=== PATIENT | female | born 1980 | race Caucasian/White ===

== ENCOUNTER 2019-12-14 13:59 | Inpatient (IN) | payer OTHER ==
[2019-12-14 14:22] VITALS: BMI 30.4
[2019-12-14] MEDS ORDERED: hydrALAZINE 20 MG/ML VIAL SLOW IVP PRN ×2 (14:33→19:05)
[2019-12-14] MEDS ORDERED: Ondansetron PF 4 MG/2 ML Vial IVP PRN ×2 (14:33→19:05)
[2019-12-14] MEDS ORDERED: Promethazine HCl 25 MG/ML VIAL IM PRN (14:33)
[2019-12-14] MEDS ORDERED: Clindamycin/D5W 900 MG in Premix Bag 1 BAG IVPB SCH (14:45)
[2019-12-14] MEDS ORDERED: Azithromycin 500 MG in Sodium Chloride 0.9% 250 ML 250 ML IVPB SCH (14:45)
[2019-12-14] MEDS ORDERED: Bicitra 30 ML UDCUP PO SCH (14:45)
[2019-12-14] MEDS ORDERED: Lactated Ringer's 1,000 ML IV SCH ×2 (14:45)
[2019-12-14] MEDS ORDERED: Azithromycin 500 MG VIAL ONE (14:46)
[2019-12-14] MEDS ORDERED: Oxytocin 10 UNITS/ML VIAL ONE ×3 (14:55→16:18)
[2019-12-14] MEDS ORDERED: PHENYLEPHRINE-NS 100 MCG/ML 10 ML SYRINGE ONE (14:55)
[2019-12-14] MEDS ORDERED: ePHEDrine 50 MG/ML VIAL ONE (14:55)
[2019-12-14 14:56] LABS: Hemoglobin 13.1 g/dL (12.0-16.0); Mean Corpuscular HGB CONC 34.3 g/dL (32.0-36.0); Mean Corpuscular Hemoglobin 31.4 pg (27.0-31.0); Mean Corpuscular Volume 91.4 fL (78.0-98.0); Mean Platelet Volume 9.2 fL (7.4-10.4); Platelet Count 185 thou/uL (130-400); RBC Distribution Width 12.8 % (11.5-14.5); Red Blood Cell (RBC) Count 4.18 mill/uL (4.20-5.40); White Blood Cell (WBC) Count 9.8 thou/uL (4.8-10.8)
[2019-12-14] MEDS: Clindamycin/D5W 900 mg/50 ml Premix Bag ONE (15:05)
[2019-12-14 15:36] LABS: HBSAg Index 0.18 S/CO (0-0.99); Hep B Surf Ag Non-Reactive S/CO (NonReactive); Syphilis Antibody Nonreactive (Nonreactive); Syphilis Antibody Index 0.06 S/CO (<1.00 Non-Reactive)
--- NOTE | 2019-12-14 15:41 | PDOC.LDHP ---
Labor and Delivery H&P Chief complaint: contractions, loss of fluid HPI: 39yo at 38w0d by LMP c/o LOF green since 1200 today, painful contractions. Current gestational age (weeks): 38 Due date: 12/28/19 Dating criteria: last menstrual period Grav: 3 Para: 2 Current complications: none Abnormal US findings: No Past Medical History: denies Current medications: pre- vitamins Previous surgical history: low tranverse CS, other (breast aug, tummy tuck) Allergies/Adverse Reactions: Allergies Allergy/AdvReac Type Severity Reaction Status Date / Time Penicillins Allergy Mild Verified 12/14/19 14:23 sulfamethoxazole Allergy Mild Verified 12/14/19 14:23 [From Bactrim] Social history: none - Physical Exam Vital signs reviewed and normal: yes General: NAD, breathing through contractions Heart: RRR Lungs: CTAB Abdomen: gravid Extremeties: no edema FHT: category 2, late decelerations, absent or minimal variables - OB Labs Blood type: A RH: positive Antibody Screen: negative HIV: negative RPR: negative HEPSAg: negative 1 hour GCT: positive 3 hour GTT: neg for GDM Rubella: immune - Assessment L&D Assessment: term rupture in membranes - Plan Plan: admit to L&D, to OR for section, informed consent obtained, anesthesia consult for pain management
--- NOTE | 2019-12-14 15:43 | PDOC.OPDEL ---
OB Operative/Delivery Note Delivery Dr/Surgeon: Mitesh Assist: Olinda Pre-Delivery Diagnosis: ruptured membrane Procedure/Post Delivery Dx: repeat low transverse CS (and bilateral salpingectomy) Weeks gestation: 38 Anesthesia: spinal - Additional Findings/Plan Placenta delivered: spontaneous findings: low transverse hysterotomy without extension, normal uterus, normal tubes, normal ovaries Post delivery plan: routine recovery
[2019-12-14] MEDS ORDERED: Ondansetron PF 4 MG/2 ML Vial ONE (15:58)
[2019-12-14 16:12] LABS: Actual Bicarbonate (HCO3a) 21.5 mEq/L (22-28); Base Excess (BEa) -8.5 mEq/L (-2.0 to +3.0)
[2019-12-14 16:14] LABS: Actual Bicarbonate (HCO3v) 20 mEq/L (22-28); Base Excess -8.4 mEq/L (-2.0 to +3.0)
[2019-12-14 16:15] LABS: pH (Cord, venous) 7.21 (7.32-7.43)
[2019-12-14] MEDS ORDERED: L&D-Morphine 4 MG/ML VIAL SLOW IVP PRN (16:45)
[2019-12-14] MEDS ORDERED: Ondansetron HCl/PF 4 MG/2 ML Vial IVP PRN (16:45)
[2019-12-14] MEDS ORDERED: HYDROmorphone 2 MG/ML VIAL SLOW IVP PRN (16:45)
[2019-12-14] MEDS ORDERED: Ketorolac Tromethamine 30 MG/ML VIAL IVP SCH (16:45)
[2019-12-14] MEDS ORDERED: Meperidine HCl/PF 25 MG/ML VIAL SLOW IVP PRN (16:45)
[2019-12-14] MEDS ORDERED: Bisacodyl 10 MG SUPP PR PRN (19:05)
[2019-12-14] MEDS ORDERED: Acetaminophen 325 MG TAB PO PRN (19:05)
[2019-12-14] MEDS ORDERED: diphenhydrAMINE 25 MG CAP PO PRN (19:05)
[2019-12-14] MEDS ORDERED: Lanolin Ointment 7 GM TUBE TOP PRN (19:05)
[2019-12-14] MEDS ORDERED: Ibuprofen 800 MG TAB PO SCH (22:00)
[2019-12-14 22:48] LABS: SARS-CoV-2 NAA Rapid Test Not Detected (NotDetected)
--- NOTE | 2019-12-14 22:52 | OP ---
DATE OF PROCEDURE: 12/14/2019 PREOPERATIVE DIAGNOSES: 1. Intrauterine at 38 weeks and 0 days. 2. Rupture of membranes. 3. Non-reassuring heart tones. 4. Desires sterilization. 5. Family history of breast cancer. 6. Prior x2. POSTOPERATIVE DIAGNOSES: 1. Intrauterine at 38 weeks and 0 days. 2. Rupture of membranes. 3. Non-reassuring heart tones. 4. Desires sterilization. 5. Family history of breast cancer. 6. Prior x2. PROCEDURE PERFORMED: Repeat low transverse section via Pfannenstiel skin incision and bilateral salpingectomy. ANESTHESIA: Spinal. BUSINESS APPLICATIONS DEVELOPER SURGEON: Clint Landaverde. ESTIMATED BLOOD LOSS: 500 mL. COMPLICATIONS: None. DRAINS: Martel catheter. PATHOLOGY: Bilateral fallopian tubes. FINDINGS: Male infant, cephalic presentation, thick meconium stained. Apgars and weight are pending. Hysterotomy without extension. Normal uterus and ovaries bilaterally. The right fallopian tube was slightly adherent to the right pelvic sidewall, otherwise normal-appearing fallopian tubes. DESCRIPTION OF PROCEDURE: The patient was taken to the operating room, where spinal anesthesia was obtained without difficulty. The patient was prepped and draped in a sterile fashion in the dorsal supine position with a leftward tilt. After ensuring adequacy of anesthesia, a Pfannenstiel skin incision was made and carried down to the underlying subcutaneous tissue with a knife. The fascia was nicked in the midline with a knife and carried laterally with Perdue scissors. The superior aspect of the fascia was tented with 2 Pardeep's and dissected off the rectus bluntly and sharply with the Perdue's. The inferior aspect of the fascia was tented with 2 Pardeep's and dissected off the rectus down to the pubic symphysis with the Perdue scissors. The rectus was bluntly divided in the midline. The peritoneum was bluntly entered into and manually retracted. The Segundo O retractor was placed. The filmy adhesion of the bladder to the lower uterine segment was taken down with the Metzenbaums. The lower uterine segment was incised in a transverse fashion and extended with a Cuenca maneuver. The 's head was brought to the hysterotomy and delivered atraumatically followed by the body. The 's cord was clamped and infant handed to awaiting Hunter team. Cord gases and cord blood were obtained. The placenta was allowed to spontaneously deliver. The uterus was exteriorized, cleared of all clots and debris. The hysterotomy was repaired with #1 Monocryl in a running locking fashion with excellent hemostasis noted. Moist warm lap was placed over the hysterotomy and the right fallopian tube was grasped and elevated with a Neversink clamp. Windows were made in the mesosalpinx. This tube was a tube that was slightly adherent down onto the pelvic sidewall and this was carefully layered out. The peritoneum was carefully layered out and incised with the Bovie while using Malawian to elevate the fallopian tube. The vessel to the fimbriated end was then skeletonized and clamped with a Echo. The remainder of the spiral arteries were skeletonized in the mesosalpinx. These were then clamped as well as the proximal portion of the fallopian tube was clamped. Metzenbaums were used to incise the tube and removed it entirely. These clamps were then tied off with 2-0 chromic ties, noting an excellent hemostasis. The same procedure was performed on the left fallopian tube. The uterus was then placed back into the abdomen. Irrigation was performed of the pelvis and pericolic gutters. The hysterotomy was noted to be hemostatic. Each fallopian tube site was examined directly and noted to be hemostatic as well. The Sgeundo O retractor was removed out of the abdomen. The rectus muscles were examined and noted to be hemostatic. The fascia was reapproximated with 0 PDS x1 suture with excellent reapproximation. The subcutaneous tissue was irrigated and cauterized of any bleeders and reapproximated with a 2-0 plain gut in a running fashion. The skin was closed with 4-0 Monocryl in a subcuticular fashion and Dermabond was applied as well as a pressure dressing. The patient tolerated the procedure well. Sponge and needle counts correct x2. The patient was taken to recovery room in stable condition. The patient received clindamycin and gentamicin prior to the procedure as well as azithromycin after the cord was clamped. Job ID: [id number]
[2019-12-15] MEDS ORDERED: Acetaminophen 325 MG TAB PO PRN (00:52)
[2019-12-15] MEDS ORDERED: diphenhydrAMINE 50 MG/ML VIAL IVP PRN (00:53)
[2019-12-15] MEDS ORDERED: Ketorolac Tromethamine 30 MG/ML VIAL IVP SCH (01:00)
[2019-12-15] MEDS: Clindamycin/D5W 900 mg/50 ml Premix Bag ONE (02:06)
[2019-12-15] MEDS: Docusate Calcium (SURFAK) 240 MG CAP PO SCH ×3 (03:08→22:51)
[2019-12-15 06:41] LABS: Mean Corpuscular HGB CONC 33.8 g/dL (32.0-36.0); Mean Corpuscular Hemoglobin 31.2 pg (27.0-31.0); Mean Corpuscular Volume 92.3 fL (78.0-98.0); Mean Platelet Volume 9.1 fL (7.4-10.4); Platelet Count 158 thou/uL (130-400); RBC Distribution Width 12.8 % (11.5-14.5); Red Blood Cell (RBC) Count 3.85 mill/uL (4.20-5.40); White Blood Cell (WBC) Count 10.2 thou/uL (4.8-10.8)
[2019-12-15] MEDS ORDERED: Ketorolac Tromethamine 30 MG/ML VIAL IVP PRN (07:00)
[2019-12-15] MEDS: Ferrous Sulfate 325 MG TAB PO SCH ×2 (07:33→17:20)
--- NOTE | 2019-12-15 08:27 | PDOC.PP ---
Post Progress Note Post Day #: 1 Subjective: no sx PIH, carpal tunnel is worse than ever PO intake tolerated: yes Flatus: yes Ambulation: yes Vital Signs (12 hours) Temp Pulse Resp BP Pulse Ox 12/15/19 08:03 98.1 F 61 20 151/89 H 100 12/15/19 06:00 71 20 158/93 H 12/15/19 05:20 98.2 F 71 20 157/98 H 99 12/15/19 02:00 20 12/14/19 23:15 97.9 F 71 20 149/97 H 99 12/14/19 21:55 97.9 F 65 20 159/93 H 12/14/19 20:55 97.9 F 70 20 140/92 H Weight Weight 172 lb - Physical Examination General: NAD Respiratory: non-labored breathing Abdominal: no distention, appropriately TTP Fundus firm & at: umb Skin: CS incision dry & intact Neurological: no gross focal deficits Psychiatric: normal affect Result Diagrams: 12/15/19 06:25 Additional Labs: Post Labs Hep Bs Antigen Non-Reactive S/CO (NonReactive) 12/14/19 14:46 Blood Type A POSITIVE 12/14/19 15:05 - Assessment/Plan POD1 s/p RCS and RRS BP elevated, need labs for PIH, start labetalol 200 bid Afebrile, other vitals stable Routine postop advances Baby in NICU possible downs syndrome Rh pos RImm Cont postop care.
[2019-12-15] MEDS ORDERED: Adacel (T-DAP) 0.5 ML SYRINGE IM ONE (09:00)
[2019-12-15 11:47] LABS: ALT (SGPT) 14 U/L (8-55); AST (SGOT) 25 U/L (5-34); Albumin 2.9 g/dL (3.5-5.0); Alkaline Phosphatase 147 U/L (40-110); Anion Gap 8 mmol/L (10-20); BUN (Urea Nitrogen) 11 mg/dL (7.0-18.7); Bilirubin, Total 0.3 mg/dL (0.2-1.2); Calc. Creatinine Clearance 125 mL/min (70-130); Calcium 8.5 mg/dL (7.8-10.44); Carbon Dioxide 24 mmol/L (22-29); Chloride 103 mmol/L (98-107); Estimated GFR-MDRD 86; Globulin 2.6 g/dL (2.4-3.5); Glucose 102 mg/dL (70-105); Potassium 4.1 mmol/L (3.5-5.1); Protein, Total 5.5 g/dL (6.0-8.3); Sodium 131 mmol/L (136-145)
[2019-12-15] MEDS: Prenatal Vitamin 1 TAB PO SCH (11:51)
[2019-12-15] MEDS: Labetalol 100 MG TAB PO SCH ×2 (11:51→22:48)
[2019-12-15] MEDS: Ibuprofen 800 MG TAB PO SCH ×2 (14:29→22:51)
[2019-12-15] MEDS: HYDROcodone/Acetaminophen 5/325 mg Tablet PO PRN (16:26)
[2019-12-16] MEDS: Labetalol 100 MG TAB PO SCH ×4 (01:15→21:35)
[2019-12-16] MEDS: HYDROcodone/Acetaminophen 5/325 mg Tablet PO PRN ×4 (01:16→22:52)
[2019-12-16] MEDS: Ibuprofen 800 MG TAB PO SCH ×3 (05:45→21:35)
[2019-12-16] MEDS: Prenatal Vitamin 1 TAB PO SCH (07:48)
[2019-12-16] MEDS: Docusate Calcium (SURFAK) 240 MG CAP PO SCH ×2 (07:49→21:37)
[2019-12-16] MEDS: Ferrous Sulfate 325 MG TAB PO SCH ×2 (07:53→17:24)
[2019-12-16] MEDS: Simethicone Chewable 80 MG TAB PO PRN ×3 (07:59→21:37)
--- NOTE | 2019-12-16 08:03 | PDOC.PP ---
Post Progress Note Post Day #: 2 PO intake tolerated: yes Flatus: yes Ambulation: yes Vital Signs (12 hours) Temp Pulse Resp BP BP 12/16/19 07:59 84 12/16/19 05:52 97.8 F 84 16 128/82 12/16/19 01:15 98.2 F 91 16 148/87 H 148/87 H 12/15/19 22:45 97.8 F 78 16 118/82 Weight Weight 172 lb - Physical Examination General: NAD Respiratory: non-labored breathing Abdominal: no distention, appropriately TTP Skin: CS incision dry & intact, no rash Neurological: no gross focal deficits Psychiatric: normal affect Result Diagrams: 12/15/19 06:25 12/15/19 10:49 Additional Labs: Post Labs Hep Bs Antigen Non-Reactive S/CO (NonReactive) 12/14/19 14:46 Blood Type A POSITIVE 12/14/19 15:05 - Assessment/Plan POD2 s/p RCS VSSAF BP nl on labetalol 200 bid, no sx PIH, labs wnl Met postop milestones Breastpumping in NICU, likely downs Cont postop care
[2019-12-17] MEDS: Ibuprofen 800 MG TAB PO SCH ×3 (05:08→21:11)
[2019-12-17] MEDS: Prenatal Vitamin 1 TAB PO SCH (08:25)
[2019-12-17] MEDS: Labetalol 100 MG TAB PO SCH ×3 (08:26→21:13)
[2019-12-17] MEDS: Docusate Calcium (SURFAK) 240 MG CAP PO SCH ×2 (08:26→21:11)
[2019-12-17] MEDS: Ferrous Sulfate 325 MG TAB PO SCH ×2 (08:27→16:50)
[2019-12-17] MEDS: HYDROcodone/Acetaminophen 5/325 mg Tablet PO PRN ×3 (09:16→21:12)
[2019-12-17] MEDS: Simethicone Chewable 80 MG TAB PO PRN ×2 (09:17→21:10)
--- NOTE | 2019-12-17 09:20 | PDOC.PP ---
Post Progress Note Vital Signs (12 hours) Temp Pulse Resp BP BP BP Pulse Ox 12/17/19 08:26 93 128/86 12/17/19 08:06 98.0 F 93 20 128/86 98 12/17/19 05:10 80 16 145/92 H 12/17/19 00:00 84 16 134/76 12/16/19 21:35 77 158/84 H Weight Weight 172 lb Result Diagrams: 12/15/19 06:25 12/15/19 10:49 Additional Labs: Post Labs Hep Bs Antigen Non-Reactive S/CO (NonReactive) 12/14/19 14:46 Blood Type A POSITIVE 12/14/19 15:05
[2019-12-18] MEDS: HYDROcodone/Acetaminophen 5/325 mg Tablet PO PRN (04:08)
[2019-12-18] MEDS ORDERED: Furosemide 20 MG TAB PO SCH (04:30)
--- NOTE | 2019-12-18 04:32 | PDOC.PP ---
Post Progress Note Post Day #: 4 Subjective: States small amount of serosanginous DSCH at CS incision, has had on/off mild LAM occipital but no vision changes. LAM often worse on walking and better with lying down. Breast pumping PO intake tolerated: yes Flatus: yes Ambulation: yes Vital Signs (12 hours) Temp Pulse Resp BP BP BP Pulse Ox 12/18/19 00:38 148/79 H 12/17/19 21:13 90 154/85 H 12/17/19 21:07 154/85 H 12/17/19 20:40 98.2 F 73 16 167/82 H 98 12/17/19 16:45 98.1 F 90 18 158/90 H Weight Weight 172 lb - Physical Examination General: NAD Cardiovascular: no m/r/g Respiratory: clear to auscultation bilaterally Abdominal: + bowel sounds, lochia, no distention Skin: CS incision dry & intact (DB in use, closed, no induration, no cellulitis, cannot elicit drainage) Neurological: no gross focal deficits Psychiatric: A&Ox3, normal affect Result Diagrams: 12/15/19 06:25 12/15/19 10:49 Additional Labs: Post Labs Hep Bs Antigen Non-Reactive S/CO (NonReactive) 12/14/19 14:46 Blood Type A POSITIVE 12/14/19 15:05 (1) Gestational hypertension Code(s): O13.9 - GESTATIONAL HTN W/O SIGNIFICANT PROTEINURIA, UNSP TRIMESTER Status: Acute (2) Delivery by section Code(s): IFD5637 - Status: Acute (3) Status post bilateral salpingectomy Code(s): Z90.79 - ACQUIRED ABSENCE OF OTHER GENITAL ORGAN(S) Status: Acute - Assessment/Plan GHTN, RT CS #3 and Bilateral RRS with serosanginous inciison drainage and LAM on/off, maybe positional Plan: 1. I do not suspect wound infection at this time...maybe small seroma. Bandage and Observe 2. LAM: I have ordered a CMP and CBC to check and compare to labor values. Will ask anesthesia 9RN asked to call) to assess for late onset spinal LAM as possibility 3. Labetolol ordered by Dr grimes, noted 4. lasix 20 mg po to help with mild 1+ edema
[2019-12-18] MEDS: Simethicone Chewable 80 MG TAB PO PRN ×2 (05:03→20:45)
[2019-12-18] MEDS: Ibuprofen 800 MG TAB PO SCH ×3 (05:04→20:46)
[2019-12-18] MEDS ORDERED: Milk Of Magnesia 30 ML UDCUP PO SCH (05:30)
[2019-12-18 06:04] LABS: Mean Corpuscular HGB CONC 33.7 g/dL (32.0-36.0); Mean Corpuscular Hemoglobin 31.1 pg (27.0-31.0); Mean Corpuscular Volume 92.4 fL (78.0-98.0); Mean Platelet Volume 7.9 fL (7.4-10.4); Platelet Count 214 thou/uL (130-400); RBC Distribution Width 13.1 % (11.5-14.5); Red Blood Cell (RBC) Count 3.53 mill/uL (4.20-5.40); White Blood Cell (WBC) Count 6.9 thou/uL (4.8-10.8)
[2019-12-18 06:25] LABS: ALT (SGPT) 59 U/L (8-55); AST (SGOT) 67 U/L (5-34); Alkaline Phosphatase 100 U/L (40-110); Anion Gap 13 mmol/L (10-20); BUN (Urea Nitrogen) 13 mg/dL (7.0-18.7); Bilirubin, Total 0.2 mg/dL (0.2-1.2); Calc. Creatinine Clearance 136 mL/min (70-130); Calcium 8.3 mg/dL (7.8-10.44); Carbon Dioxide 21 mmol/L (22-29); Chloride 106 mmol/L (98-107); Estimated GFR-MDRD Greater than 90; Globulin 2.6 g/dL (2.4-3.5); Glucose 90 mg/dL (70-105); Potassium 4.2 mmol/L (3.5-5.1); Protein, Total 5.6 g/dL (6.0-8.3); Sodium 136 mmol/L (136-145)
[2019-12-18] MEDS: Labetalol 100 MG TAB PO SCH ×3 (07:59→20:45)
[2019-12-18] MEDS: Ferrous Sulfate 325 MG TAB PO SCH ×2 (07:59→17:24)
[2019-12-18] MEDS: Prenatal Vitamin 1 TAB PO SCH (08:00)
[2019-12-18] MEDS: Docusate Calcium (SURFAK) 240 MG CAP PO SCH ×2 (08:00→20:44)
--- NOTE | 2019-12-18 17:43 | ULT ---
LIMITED SOFT TISSUE ULTRASOUND: 12/18/19 PROVIDED CLINICAL HISTORY: Evidence for fluid collection at section incision. FINDINGS: Limited sonographic interrogation was performed of the anterior abdominal wall in the region of clini collette concern. There is no evidence for an organized fluid collection sonographically. If there is pers istent clinical concern, consider CT. IMPRESSION: As above. POS: CHLOE
[2019-12-19] MEDS: Ibuprofen 800 MG TAB PO SCH (04:52)
[2019-12-19] MEDS: Simethicone Chewable 80 MG TAB PO PRN (04:53)
[2019-12-19 06:41] LABS: Hemoglobin 11.7 g/dL (12.0-16.0); Mean Corpuscular HGB CONC 33.9 g/dL (32.0-36.0); Mean Corpuscular Hemoglobin 31.7 pg (27.0-31.0); Mean Corpuscular Volume 93.4 fL (78.0-98.0); Mean Platelet Volume 8.1 fL (7.4-10.4); Platelet Count 223 thou/uL (130-400); RBC Distribution Width 13.1 % (11.5-14.5); Red Blood Cell (RBC) Count 3.69 mill/uL (4.20-5.40); White Blood Cell (WBC) Count 7.2 thou/uL (4.8-10.8)
[2019-12-19 07:10] LABS: ALT (SGPT) 59 U/L (8-55); AST (SGOT) 46 U/L (5-34); Alkaline Phosphatase 92 U/L (40-110); Anion Gap 14 mmol/L (10-20); BUN (Urea Nitrogen) 18 mg/dL (7.0-18.7); Bilirubin, Total 0.2 mg/dL (0.2-1.2); Calc. Creatinine Clearance 132 mL/min (70-130); Calcium 8.6 mg/dL (7.8-10.44); Carbon Dioxide 23 mmol/L (22-29); Chloride 108 mmol/L (98-107); Estimated GFR-MDRD Greater than 90; Globulin 2.7 g/dL (2.4-3.5); Glucose 77 mg/dL (70-105); Potassium 4.6 mmol/L (3.5-5.1); Protein, Total 5.7 g/dL (6.0-8.3); Sodium 140 mmol/L (136-145)
--- NOTE | 2019-12-19 07:15 | PDOC.PP ---
Post Progress Note Post Day #: 1 PO intake tolerated: yes Flatus: yes Ambulation: yes Vital Signs (12 hours) Temp Pulse Resp BP BP 12/19/19 04:52 97.8 F 81 18 145/82 H 12/18/19 23:45 97.8 F 70 18 149/86 H 12/18/19 20:45 80 137/82 Weight Weight 172 lb - Physical Examination General: NAD Cardiovascular: no m/r/g, RRR Respiratory: clear to auscultation bilaterally Abdominal: + bowel sounds, lochia, no distention Extremities: negative homans (B) Neurological: no gross focal deficits Psychiatric: A&Ox3, normal affect Result Diagrams: 12/19/19 06:30 12/19/19 06:30 Additional Labs: Post Labs Hep Bs Antigen Non-Reactive S/CO (NonReactive) 12/14/19 14:46 Blood Type A POSITIVE 12/14/19 15:05 - Assessment/Plan doing well. dc home later today
[2019-12-19] MEDS: Docusate Calcium (SURFAK) 240 MG CAP PO SCH (08:45)
[2019-12-19] MEDS: Prenatal Vitamin 1 TAB PO SCH (08:45)
[2019-12-19] MEDS: Labetalol 100 MG TAB PO SCH (08:45)
[2019-12-19] MEDS: Ferrous Sulfate 325 MG TAB PO SCH (08:49)
[2019-12-19 10:12] VITALS: BP 134/83; TEMP 98.4
--- NOTE | 2019-12-20 10:09 | DIS ---
DATE OF ADMISSION: 12/14/2019 DATE OF DISCHARGE: 12/19/2019 HOSPITAL COURSE: Ms. James is now hospital day #5 status post delivery with hypertension. Her is in the NICU for unknown reason. She had a repeat delivery with risk reducing salpingectomy on the . Postoperatively, she had been complicated by hypertension as well as incision issues. Her incision has drained serosanguineous fluid of varying intensity on the and and continues to do so today. Yesterday, an ultrasound was performed, which did not reveal any fluid collection. Incision seems to have increased in its tenseness and induration without erythema and then drains spontaneously some serosanguineous fluid and this resolves. The patient does not complain of significant pain with this. PHYSICAL EXAMINATION: VITAL SIGNS: She has remained afebrile throughout. Temperature 97.8, pulse 81, respirations 18, blood pressure 145/82. HEENT within normal limits. LUNGS: Clear to auscultation bilaterally. HEART: Regular rate and rhythm. ABDOMEN: Soft and nontender. Dermabond is in place. Small amount of serosanguineous fluid is noted at the medial aspect of the Pfannenstiel. It is decreased in the induration from yesterday. EXTREMITIES: No clubbing, cyanosis, or edema. Ultrasound as noted. IMPRESSION: Postoperative day #3 to 4 with aforementioned issues. Discussion was carried out with the patient regarding kind of binary nature of decision tree for her incision at this point in time. One would be to continue to observe it and the other would be to go to the operating room, open it, see if any obvious areas of bleeding are noted, which is unlikely, and packing and wound care. Considering the decrease in pain, low volume and absence of evidence of infection, the former seems reasonable at this time. We will go ahead and discharge the patient. She will be around the hospital because of her baby being in the NICU and have her have close followup with Dr. Sagastume at [facility] on Friday, 12/19. DISCHARGE MEDICATIONS: Include 1. Stanton. 2. Ibuprofen. 3. Labetalol. Job ID: [id number]
== END 2019-12-19 11:45 | disposition home or self-care (01) | DRG 785 ==
LOC: L&D/OP 13:59 → L&D 14:37 → 3SW 20:55
PROVIDERS: ADMIT Student in an Organized Health Care Education/Training Program; ATTEND Student in an Organized Health Care Education/Training Program
PROC: 10D00Z1 Extraction of Products of Conception, Low, Open Approach (ICD-10-PCS; principal; 2019-12-14)
PROC: 0UB70ZZ Excision of Bilateral Fallopian Tubes, Open Approach (ICD-10-PCS; 2019-12-14)
DX: O34.219 Maternal care for unspecified type scar from previous cesarean delivery (principal); O76 Abnormality in fetal heart rate and rhythm complicating labor and delivery; Z37.0 Single live birth; Z3A.38 38 weeks gestation of pregnancy; Z88.0 Allergy status to penicillin; Z88.2 Allergy status to sulfonamides; O13.4 Gestational [pregnancy-induced] hypertension without significant proteinuria, complicating childbirth; O90.2 Hematoma of obstetric wound; O77.0 Labor and delivery complicated by meconium in amniotic fluid; Z20.828 Contact with and (suspected) exposure to other viral communicable diseases
CPT/HCPCS: 36415; 51702; 76999; 80053; 82805; 85027; 86780; 86850; 86900; 86901; 87340; 88305; 99285; J0456; J1580; J1885; J2270; J2405; J3490; U0002

== ENCOUNTER 2020-02-15 09:30 | Outpatient (CLI) | payer OTHER ==
--- NOTE | 2020-02-15 10:16 | CT ---
CT of the abdomen and pelvis: 02/15/2020 COMPARISON: 04/21/2018 HISTORY: Evaluate for hernia in the region of a prior TECHNIQUE: Axial CT imaging at 5 mm intervals from the lung bases through the pubic symphysis with IV and oral contrast. Coronal and sagittal reformatted imaging obtained. FINDINGS: Partially imaged breast implants are present. The imaged lung bases appear unremarkable. No free intraperitoneal air or fluid. The hepatic parenchyma is diffusely hypodense, evidence of steatosis. There is a nonspecific focus of hyperenhancement within the superior posterior aspect of the right lo be of the liver measuring 9 mm. This could represent a vascular phenomenon or a flash filling hemangioma in the absence of a history of malignancy. The spleen, pancreas, and adrenal glands demons trate no acute findings. There are 2-3 nonobstructing stones within the lower pole of the left kidney measuring up to approximately 3 mm. The right kidney appears grossly unremarkable. There is a very small stable fat-containing umbilical hernia. There is no evidence for bowel obstruction or bowel inflammatory change. There is wide diastases of the inferior aspect of the rectus abdominous musculature which is new when compared to the prior CT. This rectus abdominous muscle midline diastases measures 5.5 cm in transverse dimension measured at the axial level of the mid sacrum. There is an associated hernia ext ending anteriorly into the subcutaneous fat which contains numerous nondilated loops of small bowel. This hernia sac measures approximately 14.3 cm in transverse dimension, 2.9 cm in AP dimension , and 7.3 cm in craniocaudal dimension. The vascular structures of the abdomen/pelvis appear patent. No abdominal or pelvic lymphadenopathy i s noted. Review of the osseous structures demonstrates dextroscoliosis of the upper lumbar spine/thoracolumbar junction. No worrisome lytic or blastic bone lesions are noted. IMPRESSION: Large nonobstructing midline ventral hernia of the lower abdomen/upper pelvis as above. Hyper enhancing 9 mm focus within the superior posterior aspect of the right lobe of the liver, a non specific finding. A flash filling hemangioma or a change at hepatic attenuation difference is favored in the absence of known malignancy. A follow-up examination is suggested in 6 months to docum ent stability via either MRI or CT utilizing a hepatic mass protocol. Nonobstructing renal calculi within the lower pole of the left kidney. CODE T
[2020-02-15] MEDS ORDERED: Iopamidol 370 76% 100 ML VIAL ONE (13:20)
== END 2020-02-15 09:31 | disposition home or self-care (01) ==
LOC: BICCT 09:30
PROVIDERS: ATTEND Student in an Organized Health Care Education/Training Program
DX: K43.2 Incisional hernia without obstruction or gangrene (principal); K43.9 Ventral hernia without obstruction or gangrene; N20.0 Calculus of kidney
CPT/HCPCS: 74177; Q9967

== ENCOUNTER 2020-02-16 06:36 | Outpatient (CLI) | payer OTHER ==
[2020-02-16 12:55] LABS: #Basophils 0.1 10x3/uL (0.0-0.2); #Eosinphils 0.3 10x3/uL (0.0-0.5); #Monocytes 0.4 10x3/uL (0.0-1.1); #Neutrophils 2.6 10x3/uL (1.5-8.4); %Basophils 1.4 % (0.0-2.0); %Lymphocytes 33.7 % (18.0-47.0); %Monocytes 8.5 % (0.0-10.0); %Neutrophils 50.2 % (40.0-75.0); Hemoglobin 13.4 g/dL (12.0-16.0); Mean Corpuscular HGB CONC 31.5 G/DL (32.0-36.0); Mean Corpuscular Hemoglobin 29.6 PG (27.0-33.0); Mean Platelet Volume 10.8 fl (7.4-10.4); Platelet Count 219 10x3/uL (130-400); RBC Distribution Width 13.2 % (11.5-14.5); Red Blood Cell (RBC) Count 4.52 10x6/uL (3.90-5.20); White Blood Cell (WBC) Count 5.2 10x3/uL (4.5-11.0)
[2020-02-16 13:28] LABS: BHCG - Serum Negative (NEGATIVE); Pregs Control Background? CLEAR/WHITE (CLR/WHITE); Pregs Control Bar Appear? YES (CONTROL BAR)
[2020-02-17 00:19] LABS: SARS-CoV-2 MS2 Positive; SARS-CoV-2 N Gene Negative; SARS-CoV-2 S Gene Negative; SARS-CoV-2 by NAA Not Detected (NotDetected); SARS-CoV-2 orf1ab Negative
== END 2020-02-16 06:37 | disposition home or self-care (01) ==
LOC: LABBT 06:36
PROVIDERS: ATTEND Surgery
DX: Z01.812 Encounter for preprocedural laboratory examination (principal); Z20.828 Contact with and (suspected) exposure to other viral communicable diseases; K43.2 Incisional hernia without obstruction or gangrene
CPT/HCPCS: 84703; 85025; 87635; U0003

== ENCOUNTER 2020-02-21 05:57 | Day surgery (SDC) | payer OTHER ==
[2020-02-16 11:08] VITALS: BMI 25.7
[2020-02-21] MEDS ORDERED: Levofloxacin 500 mg/D5W 100 ml Premix Bag ONE (06:24)
[2020-02-21] MEDS ORDERED: Fentanyl 100 MCG/2 ML VIAL ONE ×4 (06:34→10:14)
[2020-02-21] MEDS ORDERED: Meperidine HCl/PF 25 MG/ML VIAL ONE (06:34)
[2020-02-21] MEDS ORDERED: Famotidine/PF 20 mg/2ml Vial ONE (06:34)
[2020-02-21] MEDS ORDERED: Bupivacaine 0.25% HCL 30 ML VIAL ONE (06:43)
[2020-02-21] MEDS ORDERED: Lidocaine 2% w/Epinephrine 1:200K 20 ML VIAL ONE (06:56)
[2020-02-21] MEDS ORDERED: SUGAMMADEX SODIUM 200 MG/2 ML VIAL ONE (07:06)
--- NOTE | 2020-02-21 09:43 | OP ---
DATE OF PROCEDURE: 02/21/2020 PREOPERATIVE DIAGNOSIS: Incisional ventral hernia, suprapubic. PROCEDURE PERFORMED: Open complex ventral hernia repair with advancement flap and mesh. INDICATIONS: The patient is a 39-year-old female who had had a previous abdominoplasty in the past, who had a done in November. Postprocedure, she developed a bulge in the suprapubic area. They thought it was hematoma as she does have factor V Leiden. This did not resolve. CT scan showed to be a hernia. FINDINGS: Very complicated hernia. First of all, there was really no hernia sac and there was a contained area of eviscerated small bowel just subcutaneous. Skin was also very thin and so, it was very close to take a true evisceration. The patient had had previous plication during her abdominoplasty, shows the rectus muscles were already fairly under somewhat tension and retracted, so required advancement flap to bring them back to the midline. DESCRIPTION OF PROCEDURE: After informed consent was obtained, the patient was taken to the operating room, given general endotracheal anesthesia, placed in the supine position. Abdomen was prepped and draped in usual fashion. A transverse Pfannenstiel incision was reopened. Just under the skin, there was fluid and small bowel. There was really no hernia sac. I was able to extend the incision with curved Perdue's to protect the bowel. The omentum was adherent to the left side of the cavity, which was taken down utilizing electrocautery to be able to reduce the viscera. Once a viscera was reduced, the size of the defect was approximately 7 x 7 cm. The bladder was just underneath. I had incised the peritoneum and get into the retroperitoneum to reflect the bladder down to create a space to put mesh in, did that inferiorly, did it again superiorly and lateral. The fascia was retracted, used an 11 cm round Proceed mesh, which was hydrated. 0 Ethibond was placed in 4 quadrants, inserted intra-abdominally, and the sutures were individually grasped with a GraNee needle to position the mesh. These were not tied down at this point. Relaxing incisions were performed laterally, and the abdominal muscle was closed with interrupted #1 Prolene suture. The rectus muscles were brought to the midline. Then, the fascia was closed transversely over the muscle after it was freed up inferiorly and superiorly or anterior and posterior and then closed with a running #1 PDS. A drain was placed and brought out through a separate stab wound, 19-Lithuanian. Hemostasis was achieved with electrocautery. Subcu irrigated. The subcu reapproximated, interrupted with 3-0 Vicryl. Skin closed with a running subcuticular 4-0 Rapide. Steri-Strips applied. Sterile bandage applied as well as an abdominal binder. The patient tolerated the procedure well, transferred to Recovery in good condition. Sponge and needle count verified correct x2. Job ID: [id number]
[2020-02-21] MEDS ORDERED: Morphine 4 MG/ML VIAL ONE (10:04)
[2020-02-21] MEDS ORDERED: Metoclopramide HCl 10 MG/2 ML VIAL ONE (10:07)
[2020-02-21] MEDS ORDERED: PROPOFOL 200 MG/20 ML VIAL ONE (10:07)
[2020-02-21] MEDS ORDERED: Dexamethasone 20 MG/5 ML VIAL ONE (10:07)
[2020-02-21] MEDS ORDERED: Lidocaine 1% PF 5 ML VIAL ONE (10:07)
[2020-02-21] MEDS ORDERED: Ondansetron PF 4 MG/2 ML Vial ONE (10:07)
[2020-02-21] MEDS ORDERED: HYDROcodone/Acetaminophen 5/325 mg Tablet ONE (11:07)
== END 2020-02-21 12:10 | disposition home or self-care (01) ==
LOC: SDC 05:57
PROVIDERS: ATTEND Surgery
PROC: 0WUF0JZ Supplement Abdominal Wall with Synthetic Substitute, Open Approach (ICD-10-PCS; principal; 2020-02-21)
DX: K43.2 Incisional hernia without obstruction or gangrene (principal); D68.51 Activated protein C resistance; Z79.899 Other long term (current) drug therapy; Z88.0 Allergy status to penicillin; Z88.2 Allergy status to sulfonamides; Z91.040 Latex allergy status
CPT/HCPCS: J1100; J1956; J2175; J2270; J2405; J2704; J2765; J3010; S0020; S0028

== ENCOUNTER 2021-01-08 09:03 | Outpatient (CLI) | payer OTHER ==
[2021-01-08] MEDS ORDERED: Iopamidol-370 76% 500 ML 1 ML ONE (10:55)
== END 2021-01-08 09:04 | disposition home or self-care (01) ==
LOC: BICCT 09:03
PROVIDERS: ATTEND Student in an Organized Health Care Education/Training Program
DX: R16.0 Hepatomegaly, not elsewhere classified (principal); N20.0 Calculus of kidney
CPT/HCPCS: 74170